=== PATIENT | female | born 1945 ===

== ENCOUNTER 2022-09-22 16:22 | Inpatient (IN) | payer MEDICARE ==
[~2022-09-22] VITALS: Ht 160 cm; Wt 37.9 kg
[2022-09-22 16:47] LABS: PCO2 Arterial 66.9 mmHg (35-45); PO2 Arterial 115 mmHg (80-100)
[2022-09-22 17:30] LABS: Albumin, Blood 3.7 g/dL (3.4-5.0); Bilirubin, Total 0.7 mg/dL (0.1-1.0); Bun/Creatinine Ratio 19.3 (12.0-20.0); Calcium, Blood 9.2 mg/dL (8.5-10.1); Creatinine, Blood 0.67 mg/dL (0.40-1.00); Globulin, Blood 3.7 g/dL (2.2-4.0); Potassium, Blood 4.3 mmol/L (3.5-5.5); Total Protein, Blood 7.4 g/dL (6.4-8.2)
[2022-09-22 17:30] LABS: BASOPHILS ABSOLUTE AUTO 0.07 K/mm3 (0.00-0.23); BASOPHILS PERCENT AUTO 0 % (0-2); EOSINOPHILS ABSOLUTE AUTO 0.12 K/mm3 (0.00-0.68); EOSINOPHILS PERCENT AUTO 1 % (0-6); Hematocrit 45.9 % (33.0-51.0); Hemoglobin 14.7 g/dL (11.5-16.0); IMMATURE GRAN ABSOLUTE AUTO 0.14 K/mm3 (0.00-0.10); IMMATURE GRAN PERCENT AUTO 1 % (0-1); LYMPHOCYTES ABSOLUTE AUTO 4.45 K/mm3 (0.84-5.20); LYMPHOCYTES PERCENT AUTO 21 % (21-46); MONOCYTES ABSOLUTE AUTO 1.19 K/mm3 (0.16-1.47); MONOCYTES PERCENT AUTO 6 % (4-13); Mean Corpuscular Volume 106 fL (80-100); Mean Platelet Volume 10.6 fL (9.1-12.4); NEUTROPHILS ABSOLUTE AUTO 15.76 K/mm3 (1.96-9.15); NEUTROPHILS PERCENT AUTO 73 % (41-73); Platelet Count 277 K/mm3 (150-400); RDW Coefficient Variation 12.8 % (11.7-14.2); RDW Standard Deviation 51.1 fL (35.1-46.3); Red Blood Cell Count 4.32 M/mm3 (3.80-5.20); White Blood Cell Count 21.73 K/mm3 (4.00-11.30)
[2022-09-22 17:39] LABS: Influenza A, PCR NEGATIVE (NEGATIVE); Influenza B, PCR NEGATIVE (NEGATIVE); Resp Syncytial Virus, PCR NEGATIVE (NEGATIVE); SARS-Cov-2 (COVID-19) PCR, MMC NEGATIVE (NEGATIVE)
[2022-09-22] MEDS ORDERED: ANORO ELLIPTA1 EACH (17:47)
[2022-09-22] MEDS ORDERED: SYMBICORT 160-4.6 GM (17:47)
[2022-09-22] MEDS ORDERED: ALBU2.5V5 (17:47)
[2022-09-22 18:55] LABS: PCO2 Venous 64.5 mmHg (38-42)
[2022-09-22 18:56] LABS: Bicarbonate Venous 20.9 mmol/L (24.0-30.0); pH Blood Venous 7.21 (7.34-7.37)
[2022-09-22 21:21] LABS: Base Excess Venous -2.6 mmol/L; Bicarbonate Venous 21.9 mmol/L (24.0-30.0); pH Blood Venous 7.31 (7.34-7.37)
--- NOTE | 2022-09-22 23:00 | NUR ---
ARRIVAL TO PCU4 PT ARRIVED TO PCU4 AT APPROXIMATELY 2235. PT SLID OVER FROM ER GURNEY TO HOSPITAL BED BY 4 CLINICAL STAFF MEMBERS. RT ARRIVED WITH PT, MANAGING BIPAP. PT A&Ox4, COMMUNICATES NEEDS APPROPRIATELY, REFUSED TO ANSWER MOST Hx QUESTIONS. PT IS NOT HAPPY ABOUT WEARING BIPAP. BP STABLE, SINUS TACH 100's, DENIES CP/PRESSURE. SpO2> 92% ON BIPAP 18/8 30% FiO2, REPORTS SOB WHEN OFF BIPAP. ORIENTED PT TO CALL LIGHT/UNIT, BED IN LOWEST POSITION.
[2022-09-22 23:06] VITALS: BP 123/102
[2022-09-23 03:22] VITALS: BP 124/109
[2022-09-23 04:04] LABS: Hematocrit 39.8 % (33.0-51.0); Hemoglobin 13.5 g/dL (11.5-16.0); Mean Corpuscular HGB 34.6 pg (26.0-34.0); Mean Corpuscular HGB Conc 33.9 g/dL (31.5-36.5); Mean Corpuscular Volume 102 fL (80-100); Mean Platelet Volume 10.3 fL (9.1-12.4); Platelet Count 188 K/mm3 (150-400); RDW Coefficient Variation 12.9 % (11.7-14.2); RDW Standard Deviation 48.5 fL (35.1-46.3)
--- NOTE | 2022-09-23 04:53 | NUR ---
SHIFT SUMMARY PT A&Ox3-4, ANSWERS QUESTIONS APPROPRIATELY BUT IS TRYING TO LEAVE AND NOT FOLLOWING DIRECTION. D/T THIS, PT MOVED TO ROOM CLOSER TO NURSES STATION AND VIRTUAL COMPAINION INITIATED. BP STABLE, SINUS 70's, DENIES CP/PRESSURE. SpO2> 92% 3-5L VIA NC, DENIES SOB, HAS C/O COUGH. PT 1 ASSIST W/ FWW TO BSC, CONTINENT OF URINE AND BOWEL. NO OTHER EVENTS, WILL REPORT TO ONCOMING RN.
[2022-09-23 04:59] LABS: Bun/Creatinine Ratio 20.2 (12.0-20.0); Calcium, Blood 8.4 mg/dL (8.5-10.1); Creatinine, Blood 0.79 mg/dL (0.40-1.00); Potassium, Blood 4.3 mmol/L (3.5-5.5)
--- NOTE | 2022-09-23 05:00 | NUR ---
SHIFT SUMMARY SEE PREVIOUS NOTE. PT A&Ox4, CALLS AND COMMUNICATES NEEDS APPROPRIATELY. PT IS NOT HAPPY ABOUT WEARING BIPAP. BP STABLE, SINUS TACH 100's, DENIES CP/PRESSURE. SpO2> 92% ON BIPAP 18/8 30% FiO2, REPORTS SOB WHEN OFF BIPAP. PT WITH ONE INCONTINENT VOID, ATTENDS IN PLACE. NO OTHER EVENTS, WILL REPORT TO ONCOMING RN.
[2022-09-23 07:38] VITALS: BP 124/99
--- NOTE | 2022-09-23 14:17 | NUR ---
Brief supportive visit this afternoon. Pt resting in bed with her eyes closed and wearing BIPAP. Pt's Primary RN Jaciel at bedside. Jaciel reports administering Ativan prior to this RN's arrival. Pt having difficulty with dyspnea though saturations remain normal. Pt remains with her eyes closed and does not wake to verbal stimuli or gentle touch. Pt's sister Eunice at bedside. Offered therapeutic listening as Eunice expresses concerns regarding Pt's health and states concerns whether Pt will make it out of the hospital. Offered reassurance and reviewed plan of care. Sister reports she and Pt were on their way to see Pt's children in [place]. Eunice reports she and Pt lives in [facility]. Listened as Eunice reports since the COVID Pandemic Pt has not seen her PCP on a regular basis. She states Pt's last appointment was approximately 9 months ago. Continued therapeutic listening. Palliative Care will remain available for therapeutic and supportive visits.
[2022-09-23 15:04] VITALS: BP 125/99
--- NOTE | 2022-09-23 19:21 | NUR ---
SHIFT SUMMARY PATIENT LETHARGIC OR ANXIOUS AND SHORT OF BREATH WHEN AWAKE. TRIED A COUPLE BREAKS FROM BIPAP AND PATIENT UNABLE TO TOLERATE FOR MORE THAN AN HOUR BEFORE SHORT OF BREATH AND ANXIOUS. PRN IV ATIVAN. BIPAP AT 18/8 AT 30% FIO2. LS RHONCHI THROUGHOUT WITH EXP WHEEZE AND CONGESTED COUGH. NO PO INTAKE THIS SHIFT. ENSURES ORDERED. LOW URINE OUTPUT. SISTER VISITED AT BEDSIDE FOR A COUPLE HOURS. LR ORDERED AND STARTED AT 100/HR. REPORT GIVEN TO CORPORATE COUNSELOR RN.
[2022-09-23 20:36] VITALS: BP 135/107
[2022-09-23 23:13] VITALS: BP 145/112
[2022-09-24 03:06] VITALS: BP 148/120
--- NOTE | 2022-09-24 04:37 | NUR ---
SHIFT SUMMARY PT A&Ox4, CALLS AND COMMUNICATES NEEDS APPROPRIATELY. PT NOT HAPPY ABOUT WEARING BIPAP AND VERY IRRITABLE WITH STAFF. BP STABLE, SINUS TACH 110-120's, DENIES CP/PRESSURE. SpO2> 92% ON RA, BIPAP 18/8 30% FiO2 IS FOR WORK OF BREATHING. PT REPORTS SOB WHEN OFF BIPAP. PT INCONTINENT/CONTINENT ATTENDS IN PLACE. NO OTHER EVENTS, WILL REPORT TO ONCOMING RN.
[2022-09-24 07:21] VITALS: BP 138/113
--- NOTE | 2022-09-24 10:23 | NUR ---
PT HAD AN ANXIETY ATTACK AT ABOUT 0950 PT WAS ON 4L NC AND WAS HAVING SOB, TAHCYCARDIA, AND ANXIETY. SHE WAS BOOSTED IN BED AND PLACED BACK ON HER BIPAP. SHE WAS GIVEN ANXIETY MEDICATIONS SHORTLY BEFORE HER ANXIETY ATTACK. SHE IS NOW AT REST ON THE BIPAP W/ HER HR SR/ST 90'S-100'S.
--- NOTE | 2022-09-24 10:36 | NUR ---
PATIENT AND FAMILY RE: IGNITION SOURCES AND RISK OF INJUSRY WHILE OXYGEN IS IN USE. PATIENT DENIES SMOKING. PATIENT AND FAMILY VERBALIZE UNDERSTANDING OF EDUCATION AND HAD NO FURTHER QUESTIONS AT THIS TIME.
--- NOTE | 2022-09-24 10:54 | NUR ---
PT DENIED HAVING ANY LIGHTERS AND STATED SHE SENT THEM HOME W/ FAMILY. WHEN FAMILY CAME IN TO SEE THE PT, WE ASKED THE PT WHO TOOK HOME HER LIGHTERS SO WE CAN MAKE NOTE OF IT. THE FAMILY WAS CONFUSED AND STATED NOBODY TOOK HOME HER LIGHTERS. I ASKED THE PT AGAIN IF SHE HAS ANY LIGHTERS AND IF SHE WILL GO THROUGH HER BAG. SHE HANDED ME TWO LIGHTERES AND THEY WERE SENT HOME W/ FAMILY. PT EDUCATED ON THE FIRE RISK AND HAZARDS OF HAVING IT IN THE HOSPITAL. PT UNDERSTOOD BUT WAS IRRITATED WITH STAFF.
--- NOTE | 2022-09-24 10:56 | NUR ---
PATIENT EDUCATED ON RISK RE: IGNITION SOURCES AND RISK OF INJURY WHILE OXYGEN IS IN USE. PATIENT AT FIRST DENIED HAVING ANY LIGHTERS OR FLAMABLE PRODUCTS IN HER PERSONAL ITEMS AND THAT A FAMILY MEMBER HAD ALREADY TAKEN IT HOME FOR HER. WHEN FAMILY WAS IN THE ROOM WITH PATIENT THIS NURSE AND THE PRIMARY NURSE ASKED FAMILY IF ANY OF THEM CAME IN EARLIER IN THE SHIFT AND HAD TAKEN HER LIGHTERS HOME. FAMILY AT BEDSIDE WAS CONFUSED AND STATED THIS WAS THEIR FIRST TIME COMING AND SEEING THE PATIENT TODAY. PATIENT WAS THEN ASKED AGAIN BY PRIMARY NURSE IF SHE HAD ANY LIGHTERS IN HER PERSONAL BELONGINGS. PATIENT THEN ASKED FOR HER PURSE AND HANDED THE PRIMARY NURSE 2 LIGHTERS WHICH WERE THEN GIVEN TO FAMILY TO BE TAKEN HOME. THIS NURSE THEN EDUCATED FAMILY MEMBERS AND PATIENT ABOUT IGNITION SOURCES AND RISK OF INJURY. BOTH FAMILY AND PATIENT VERBALIZED UNDERSTANDING OF EDUCATION AND HAD NO FURTHER QUESTIONS AT THIS TIME. CHARGE NURSE IS NOTIFIED OF ELEVATED RISK. PATIENT IS A CURRENT SMOKER USER. PATIENT IS ON NC OXYGEN WELL BIPAP.
[2022-09-24 11:13] VITALS: BP 111/85
--- NOTE | 2022-09-24 12:20 | NUR ---
PT MEDICATED FOR ANOTHER ANXIETY ATTTACK ABOUT 1200 PT HAD TO PEE AND PULLED OFF HER BIPAP, BECAME SOB, TACHYCARDIC, AND ANXIOUS. REBECCA RENDON HEARD THE PT AND WENT IN THE ROOM, I FOLLOWED SHORTLY AFTER. PT WAS PUT BACK ON HER BIPAP, AND SHE STATED SHE WAS HAVING A HARD TIME BREATHING AND WAS ANXIOUS. I GAVE HER 1MG ATIVAN FOR HER ANXIETY. SHE IS STATING SHE IS FEELING BETTER ALREADY. PT NOW DROWSY. DURING HER ANXIETY ATTACK SHE VOIDED IN THE BED. SHE WAS CLEANED UP AND GIVEN NEW LINENS/UNDER PANTS. SEE NOTES FOR ANY MORE UPDATES.
[2022-09-24 15:40] VITALS: BP 110/88
--- NOTE | 2022-09-24 17:38 | NUR ---
Shift Summary PT IS A&OX4 BUT HAS BEEN ANXIOUS THIS SHIFT. SHE HAS HAD A FEW ANXIETY ATTACKS AND HAD TO BE MEDICATED. SEE PREVIOUS NOTE FOR MORE INFORMATION. SHE HAS BEEN BETWEEN 4L NC AND THE BIPAP 18/8 @ 30%. PT GETS SOB W/ ANXIETY. SHE SOUNDS VERY MOIST AND COARSE SO HER FLUIDS WERE D/C'D AND A 1V CHEST X RAY WAS OBTAINED. ON TELEMETRY THE PT HAS BEEN ST 100'S-130'S. SHE BECOMES TACHYCARDIC W/ ANXIETY. PT DENIES ANY ANGINA OR CHEST PRESSURE. BED ALARM ON, BED IN LOW, CALL LIGHT IN REACH. SEE NOTES FOR ANY UPDATES.
[2022-09-24 21:12] VITALS: BP 111/86
--- NOTE | 2022-09-24 22:01 | NUR ---
PT SAFETY/SMOKING EDUCATION PT & FAMILY EDUCATED REGARDING IGNITION SOURCES AND RISK OF INJURY WHILE OXYGEN IS IN USE. PT DENIES SMOKING OR HAVING ANY INGNITION SOURCES. PT & FAMILY VERBALIZE UNDERSTANDING.
[2022-09-24 23:18] VITALS: BP 146/106
[2022-09-25] VITALS (7 sets, daily range): BP systolic 120–149; BP diastolic 89–125
[2022-09-25 04:25] LABS: Bun/Creatinine Ratio 35.6 (12.0-20.0); Calcium, Blood 8.5 mg/dL (8.5-10.1); Creatinine, Blood 0.79 mg/dL (0.40-1.00)
--- NOTE | 2022-09-25 04:33 | NUR ---
SHIFT SUMMARY PT A&Ox4, CALLS AND COMMUNICATES NEEDS APPROPRIATELY. PT LESS IRRITABLE AND MORE COOPERATIVE WITH CARE THIS SHIFT. BP STABLE, SINUS TACH 110-120's, DENIES CP/PRESSURE. SpO2> 92% ON RA, DID NOT WEAR BIPAP THROUGHOUT NIGHT. PT REPORTS SOB WHEN TRANSFERING. PT DID NOT HAVE ANY EPISODES OF ANXIETY ATTACKS. PT CONTINENT OF URINE AND BOWEL ATTENDS IN PLACE. NO OTHER EVENTS, WILL REPORT TO ONCOMING RN.
--- NOTE | 2022-09-25 15:12 | NUR ---
PT TRYING TO LEAVE OR GO ON A WALK TO SMOKE PT HAS BEEN HAVING NICOTINE WITHDRAWLS AND HAS BEEN MAKING COMMENTS ABOUT WANTING TO LEAVE TO SMOKE. SHE WAS PROVIDED ADDITIONAL FIRE SAFTEY EDUCATION AND TWO LIGHTERS WERE CONFINSCATED YESTERDAY AND SENT HOME WITH FAMILY. FAMILY WAS PROVIDED EDUCATION WELL. THE PT HAS HAS GOTTEN MORE SNAPPY WITH STAFF AND HAS BEEN SAYING THAT SHE FEELS LIKE SHE IS IN A DETENTION. STAFF TOOK HER ON A WALK AROUND THE UNIT, AND GOT THE PT UP IN A CHAIR. PT STILL NOT PLEASED AND IS WANTING TO LEAVE. DRIVER LICENSE AGENT RAMIN, JUSTICE LEE, AND MYSELF HAVE PROVIDED EDUCATION TO THE PT ABOUT FIRE SAFTEY, AND RISKS OF LEAVING AMA. PT HAS A NICOTINE PATCH, NICOTINE GUM Q4P, ATIVAN, AND ATARAX TO HELP WITH ANXIETY/WITHDRAWAL. DR. NICHOLE WAS CALLED AND STATED THAT HE WILL COME TALK TO THE PT. SEE NOTES FOR ANY UPDATES.
--- NOTE | 2022-09-25 16:55 | NUR ---
SHIFT SUMMARY PT IS A&OX4, BUT HAS BEEN ANXIOUS AND IRRITABLE THIS SHIFT. THE PT IS GOING THROUGH NICOTINE WD AND HAS BEEN WANTING TO LEAVE AMA TO SMOKE. DR. NICHOLE HAS COME TO BEDSIDE AND TALKED TO THE PT. THE PT IS NOT USING HER CALL LIGHT APPROPRIATELY AND IS GETTING OUT OF BED BY HERSELF. BED ALARM ON. PT IS EDUCATED ON SAFTEY RISKS AND SHE HAS NOT MADE CHANGES. SHE HAS BEEN GIVEN NICOTINE GUM, NICOTINE PATCH, AND ANXIETY MEDS TO HELP. PT HAS BEEN TITRATED TO RA AND HAS THE BIPAP FOR SOB AND ANXIETY ATTACKS. SP02>90%. ON TELE THE PT IS ST 100'S-130'S. PT DENIES ANGINA. BED IN LOW, CALL LIGHT IN REACH, AND BED ALARM ON. SEE NOTES FOR ANY UPDATES.
--- NOTE | 2022-09-25 22:52 | NUR ---
ASSUMED CARE: 191- Received bedside report and assumed care of patient. I educated the patient on the hospital's no smoking policy. She verbalizes understanding and agrees not to smoke or ignite anything. Per previous RN- belongings have been searched and lighters confiscated.
[2022-09-26 00:05] VITALS: BP 139/112
[2022-09-26 03:46] VITALS: BP 133/98
[2022-09-26 04:09] LABS: Bun/Creatinine Ratio 42.4 (12.0-20.0); Calcium, Blood 8.6 mg/dL (8.5-10.1); Creatinine, Blood 0.66 mg/dL (0.40-1.00); Potassium, Blood 3.8 mmol/L (3.5-5.5)
--- NOTE | 2022-09-26 05:54 | NUR ---
SHIFT SUMMARY: Start of shift- patient educated on no ignition and no smoking policy. She verbalizes understanding and agrees not to smoke or ignite anything in room. She is anxious and impulsive, frequently setting off bed alarm despite being oriented x3. She became tachycardic and very dyspneic after getting to the commode at the beginning of the shift. Later, she was able to sit at the edge of bed and ambulate in the room without distress, so we walked in the rosa per patient request. She was initially on 2L NC, now on room air with sats in the mid 90s. She went to sleep around 2300 and has slept soundly since then. Vitals stable.
[2022-09-26 07:13] VITALS: BP 144/107
[2022-09-26] MEDS ORDERED: NICO21TP TOP (11:26)
[2022-09-26] MEDS ORDERED: LEVO750 PO (11:26)
[2022-09-26] MEDS ORDERED: OMEP20ER PO (11:27)
[2022-09-26] MEDS ORDERED: PROBIOTIC1 EA13 PO (11:27)
[2022-09-26 11:28] VITALS: BP 139/107
[2022-09-26] MEDS ORDERED: PRED20 PO (11:28)
--- NOTE | 2022-09-26 12:23 | NUR ---
PT DISCHARGE MEDICATIONS FAXED TO [facility], SHARLENE DROPPED OFF OXYGEN, AND PT BELONGINGS SENT WITH FAMILY. I WENT OVER EDUCATION WITH THE PT AND HER SON JAUN, ALL QUESTIONS WERE ANSWERED. EXTRA EDUCATION ABOUT SMOKING WITH OXYGEN WAS PROVIDED. SON IS WORRIED THE PT WILL NOT STOP. HE WAS EDUCATED THAT NICOTINE PATCHES WERE PROVIDED, BUT IF THE PT FEELS LIKE SHE HAS TO SMOKE ALL OXYGEN NEEDS TO BE FAR AWAY FROM THE PT. SHE IS ONLY REQUIRED TO WEAR 2L NC WHEN AMBULATING AND CAN TAKE OFF HER OXYGEN WHEN SITTING OR RESTING. IV D/C'D. VS STABLE.
== END 2022-09-26 12:45 | disposition home or self-care (01) | DRG 871 ==
LOC: ER 16:22 → PCU 22:10
PROVIDERS: Emergency Medicine; Internal Medicine; Nurse Practitioner Acute Care; ADMIT Internal Medicine
PROC: 5A09357 Assistance with Respiratory Ventilation, Less than 24 Consecutive Hours, Continuous Positive Airway Pressure (ICD-10-PCS; principal; 2022-09-22)
PROC: 3E03329 Introduction of Other Anti-infective into Peripheral Vein, Percutaneous Approach (ICD-10-PCS; 2022-09-22)
PROC: 4A033R1 Measurement of Arterial Saturation, Peripheral, Percutaneous Approach (ICD-10-PCS; 2022-09-22)
DX: A41.9 Sepsis, unspecified organism (principal); J18.9 Pneumonia, unspecified organism; J96.01 Acute respiratory failure with hypoxia; J96.02 Acute respiratory failure with hypercapnia; J44.1 Chronic obstructive pulmonary disease with (acute) exacerbation; J44.0 Chronic obstructive pulmonary disease with (acute) lower respiratory infection; E87.20 Acidosis, unspecified; R64 Cachexia; Z68.1 Body mass index [BMI] 19.9 or less, adult; Z66 Do not resuscitate; Z20.822 Contact with and (suspected) exposure to COVID-19; R65.20 Severe sepsis without septic shock; F17.210 Nicotine dependence, cigarettes, uncomplicated; Z88.8 Allergy status to other drugs, medicaments and biological substances; Z88.1 Allergy status to other antibiotic agents; Z79.899 Other long term (current) drug therapy
CPT/HCPCS: 0241U; 36415; 36600; 71045; 71260; 80048; 80053; 82803; 83605; 83735; 83880; 84145; 84484; 85025; 85027; 85379; 87040; 87070; 87077; 87205; 93005; 93010; 94640; 94644; 94660; 94664; 94761; 94762; 96365-59; 96366; 96367; 96375-59; 99285-25; A9270; J0456; J1650; J1940; J1956; J2060; J2405; J2930; J3475; J7030; J7050; J7120; Q9967